=== PATIENT | male | born 2000 | race Caucasian/White ===

== ENCOUNTER 2023-01-30 08:27 | Observation (INO) ==
--- NOTE | 2022-12-24 09:36 | Anesthesiology Consultation ---
Date of Service December 24, 2022 Assessment & Plan (1) Encounter for pre-operative examination: Plan - COVID screening: Per credit assessment analyst on 12/24/2022: Travel screen-returned from [place] by place 12/21/22, no known COVID-19 positive contacts or current COVID- 19 related symptoms in past 2 weeks. To surgeon's discretion if preop COVID testing is needed. Chart Review Chart Review: Acceptable Risk for Surgery and Patient NOT seen in Pre Admission Testing History Surgery Operation Date: 12/26/22 07:00 Proposed Procedures p Septoplasty - Ivan Esquivel MD s and Bilateral Inferior Turbinate Reduction with Tonsillectomy and Possible Adenoidectomy - Ivan Esquivel MD Height/Weight Height: 5 ft 6 in Weight: 65.771 kg Allergies Allergy/AdvReac Type Severity Reaction Status Date / Time No Known Drug Allergies Allergy Verified 12/24/22 09:08 Medications Home Medications Medication Instructions Recorded Confirmed Last Taken tretinoin 0.025 % topical cream 1 applic topical HS 12/24/22 12/24/22 Unknown Past Medical History Medical History (Updated 12/24/22 @ 09:35 by Roxy Lowery PA-C) Sleep apnea "upcoming sx to help with sleep apnea, no device currently" Swimmer's ear of left side "currently using ear drops for this" Past Family History Family History Grandmother (Maternal) Breast cancer Other No family history of adverse response to anesthesia No family history of bleeding disorder Past Surgical History Surgical History (Updated 12/24/22 @ 09:12 by Clemencia Grover) Hx of wisdom tooth extraction Social History Smoking Status: Current every day smoker tobacco type: e-cigarettes Smoking cigarettes per day: vapes daily; occasional nicotine pouch Do You Dip or Chew Tobacco: No Hx Alcohol Use: No Alcohol type: beer, wine and hard liquor alcohol intake frequency: a few times a week Hx Substance Use: Yes substance use type: marijuana Last Used Substance Other:: 1 month ago
[~2023-01-30 08:27] MED LIST: ACETAMINOPHEN 1000 MG/100 ML IV IV ONE; LACTATED RINGER'S 1,000 ML IV SCH; LR 15ML/HR IV SCH; ceFAZolin 2000MG 2,000 MG/15 ML SYR IV SCH
[2023-01-30] MEDS ORDERED: LIDOCAINE 2% MPF LOCAL 5 ML VIAL ONE (08:49)
[2023-01-30] MEDS ORDERED: DEXAMETHASONE SOD INJ 4 MG/ML VIAL ONE (08:49)
[2023-01-30] MEDS ORDERED: fentaNYL citrate PF 100 MCG/2 ML VIAL ONE ×2 (08:49→11:08)
[2023-01-30] MEDS ORDERED: MIDAZOLAM HCL 1 MG/ML 2ML VIAL ONE (08:49)
[2023-01-30] MEDS ORDERED: PROPOFOL IV EMULSION 10 MG/ML 20 ML VIAL IV ONE (08:49)
[2023-01-30] MEDS ORDERED: ONDANSETRON INJ 2 MG/ML 2 ML VIAL ONE ×2 (08:49→12:42)
[2023-01-30] MEDS ORDERED: ROCURONIUM BROMIDE 10 MG/ML 5 ML VIAL IV ONE (08:49)
[2023-01-30] MEDS ORDERED: ePHEDrine sulfate 50 MG/ML AMP IV PRN (09:07)
[2023-01-30] MEDS ORDERED: ONDANSETRON INJ 2 MG/ML 2 ML VIAL IV PRN ×2 (09:07→12:44)
[2023-01-30] MEDS ORDERED: fentaNYL citrate PF 100 MCG/2 ML VIAL IV PRN (09:07)
[2023-01-30] MEDS ORDERED: ATROPINE SULFATE 0.1 MG/ML 10ML SYR IV PRN (09:07)
[2023-01-30] MEDS ORDERED: LIDOCAINE 2% JELLY 5 ML TUBE EXT ONE (10:22)
[2023-01-30] MEDS ORDERED: MUPIROCIN 2% OINT 22 GM TUBE ONE (10:22)
[2023-01-30] MEDS ORDERED: LIDOCAINE/EPINEPHRINE 1% 20 ML VIAL ONE (10:23)
[2023-01-30] MEDS ORDERED: TRIAMCINOLONE ACET 40 MG/ML VIAL ONE (10:23)
--- NOTE | 2023-01-30 10:25 | History & Physical Report ---
Date of Service January 30, 2023 Assessment & Plan (1) Tonsillar hypertrophy: (2) Nasal septal deviation: (3) Hypertrophy of both inferior nasal turbinates: (4) Obstructive sleep apnea: (5) Adenoid hypertrophy: Plan 22yM with severe CESAR presenting for septoplasty with bilateral inferior turbinate reduction and tonsillectomy with possible adenoidectomy. Proceed as planned. History of Present Illness Primary Care Provider: [facility] 22yM with severe CESAR presenting for septoplasty with bilateral inferior turbinate reduction and tonsillectomy with possible adenoidectomy. No changes. Allergies Allergy/AdvReac Type Severity Reaction Status Date / Time No Known Drug Allergies Allergy Verified 01/30/23 08:49 Home Medications Medication Instructions Recorded Confirmed Type tretinoin 0.025 % topical cream 1 applic topical HS 12/24/22 01/30/23 History Past Med/Surg History Medical History Sleep apnea "upcoming sx to help with sleep apnea, no device currently" Swimmer's ear of left side "currently using ear drops for this" Surgical History Hx of wisdom tooth extraction Family History Grandmother (Maternal) Breast cancer Other No family history of adverse response to anesthesia No family history of bleeding disorder Social History Smoking Status: Current every day smoker Tobacco Type: E-cigarettes / Vaping Age Started Using Tobacco: 16; Cigarettes Per Day: vapes daily; occasional nicotine pouch; Second Hand Exposure: No; Do You Dip or Chew Tobacco: No; Tobacco Cessation Education Requested by Patient: No Hx Alcohol Use: No Hx Substance Use: Yes Non-Prescribed Medications: Marijuana Non-Prescribed Medications Comment: through vape pen Last Used Substance Other:: 1 month ago Preferred Language: [place] Communication Ability: Effective Control And Recovery Combat Rescue Required: No Beliefs That Will Affect Care: None marital status: Single Current Living Situation: Other Current Living Situation Comment: 3 roommates current occupational status: student Other Information That Helps Us Care for You: No Feels Safe at Home: Yes Safety Concerns: Feels Safe At This Time Assistive Devices: None Physical Exam Physical Exam: WNWD, NAD EOMI, normal sclera Nares patent, no external deformity External ears normal Normal voice Nonlabored respirations, no stridor AAO x3 Moving all extremities spontaneously Results & Data Results & Data Vital Signs (Past 12 Hours) Vital Signs Temp Pulse Resp BP Pulse Ox O2 Del Method 01/30/23 08:50 36.4 C L 80 18 155/90 H 99 Room Air PG Care Time/CCT Total # of Minutes Spent Total Time Spent with Patient: Total time spent is greater than 50% in coordination of care (as documented) at patient's floor/unit and/or counseling patient: Coding Level of Care Code None Diagnoses Tonsillar hypertrophy J35.1 Nasal septal deviation J34.2 Hypertrophy of both inferior nasal turbinates J34.3 Obstructive sleep apnea G47.33 Adenoid hypertrophy J35.2
[2023-01-30] MEDS: OXYMETAZOLINE 0.05% 30 ML BTL NAE SCH ×2 (10:40→11:49)
[2023-01-30] MEDS ORDERED: KETAMINE 50 MG/5 ML SYRINGE ONE (10:56)
[2023-01-30] MEDS ORDERED: SURGICEL ABSORB HEMOSTAT 2IN X 14IN TOP ONE (12:08)
[2023-01-30] MEDS ORDERED: oxyCODONE HCL SOLN 5 MG/5 ML UDC PO PRN (12:42)
--- NOTE | 2023-01-30 12:42 | Post Operative Brief Note ---
PG Immediate Post Op with CF Date of Surgery January 30, 2023 Pre & Post Diagnosis Operation Date: 01/30/23 10:20 Pre-Op Diagnosis: (1) Tonsillar hypertrophy (2) Nasal septal deviation (3) Hypertrophy of both inferior nasal turbinates (4) Obstructive sleep apnea (5) Adenoid hypertrophy Post-Op Diagnosis: (1) Tonsillar hypertrophy (2) Nasal septal deviation (3) Hypertrophy of both inferior nasal turbinates (4) Obstructive sleep apnea (5) Adenoid hypertrophy I identified the patient and participated in the time-out.: Yes Procedure Operation Date: 01/30/23 10:20 Actual Procedures p Septoplasty and Bilateral Inferior Turbinate Reduction(Bilateral) - Ivan Esquivel MD s Bilateral Tonsillectomy and Adenoidectomy(Bilateral) - Ivan Esquivel MD Surgeon Ivan Esquivel MD [employer] [facility] none Estimated Blood Loss 25 Findings See Below 1. 3+ tonsils 2. 70% obstructive adenoids 3. Intact palate 4. Septal deviation L with spur 5. Bilateral ITH Specimens Specimen Description: Permanent Specimen A: Right Tonsil B: Left Tonsil
[2023-01-30] MEDS ORDERED: SODIUM CHLORIDE 0.9% 1000ML 1,000 ML IV SCH (12:45)
[2023-01-30] MEDS ORDERED: SUGAMMADEX SODIUM 200 MG/2 ML VIAL IV ONE ×2 (13:07→13:08)
[2023-01-30] MEDS: LABETALOL HCL IV 5 MG/ML 20ML IV PRN ×3 (14:43→15:22)
--- NOTE | 2023-01-30 15:26 | Anesthesiology Progress Note ---
Date of Service January 30, 2023 Anesthesia Post Procedure Vital Signs Vital Signs: Temp Pulse Pulse Resp BP Pulse Ox O2 Del Method 01/30/23 15:20 76 14 156/102 H 95 Room Air 01/30/23 15:10 61 14 153/101 H 95 Room Air 01/30/23 15:00 64 12 143/91 H 99 Room Air 01/30/23 14:50 36.5 C 58 L 14 140/94 100 Room Air 01/30/23 14:40 63 14 158/100 H 100 Room Air 01/30/23 14:30 66 12 159/107 H 99 Room Air 01/30/23 14:20 64 15 154/107 H 99 Room Air 01/30/23 14:10 62 12 178/102 H 98 Room Air 01/30/23 14:00 63 14 158/105 H 98 Room Air 01/30/23 13:53 36.1 C L 58 L 12 169/75 H 100 Oxymask 01/30/23 08:50 36.4 C L 80 18 155/90 H 99 Room Air O2 Flow Rate 01/30/23 15:20 01/30/23 15:10 01/30/23 15:00 01/30/23 14:50 01/30/23 14:40 01/30/23 14:30 01/30/23 14:20 01/30/23 14:10 01/30/23 14:00 01/30/23 13:53 6 01/30/23 08:50 Pain Intensity Throat: Pain Intensity: 6 Transfer of Care Handoff Completed per policy Notes Mental Status: alert / awake / arousable Patient Amnestic to Procedure: Yes Nausea / Vomiting: adequately controlled Pain: adequately controlled Airway Patency, RR, SpO2: stable & adequate BP & HR: stable & adequate Hydration State: stable & adequate Anesthetic Complications: no major complications apparent
--- NOTE | 2023-01-30 17:32 | Operative Report (OR) ---
DATE OF SERVICE: 01/30/2023. PREOPERATIVE DIAGNOSES: 1. Tonsillar hypertrophy. 2. Adenoid hypertrophy. 3. Nasal septal deviation. 4. Bilateral inferior turbinate hypertrophy. 5. Severe obstructive sleep apnea. POSTOPERATIVE DIAGNOSES: 1. Tonsillar hypertrophy. 2. Adenoid hypertrophy. 3. Nasal septal deviation. 4. Bilateral inferior turbinate hypertrophy. 5. Severe obstructive sleep apnea. PROCEDURES: 1. Septoplasty. 2. Bilateral submucosal inferior turbinate reduction. 3. Adenotonsillectomy. SURGEON: Ivan Esquivel MD. ANESTHESIA: General, orotracheal. ESTIMATED BLOOD LOSS: 40 mL INTRAOPERATIVE FINDINGS: 1. 3+ cryptic tonsils bilaterally. 2. 70% obstructive adenoid tissue. 3. Intact palate. 4. Septal deviation to the left with large spur. 5. Bilateral inferior turbinate hypertrophy. SPECIMENS: 1. Right tonsil. 2. Left tonsil. COMPLICATIONS: Oropharyngeal oozing on emergence requiring additional cauterization. INDICATIONS FOR THE PROCEDURE: The patient is a 22-year-old male with a history of a left greater th an right nasal airway obstruction, recurrent tonsillitis, tonsillar hypertrophy, and severe obstructi ve sleep apnea, who was noted to have a septal deviation and inferior turbinate hypertrophy in the of fice as well as adenotonsillar hypertrophy. A sleep study showed severe obstructive sleep apnea with an AHI of 37. It was recommended that he undergo adenotonsillectomy with a septoplasty with bilater al inferior turbinate reduction after failing maximal medical therapy. The risks and benefits of the procedure were discussed in detail, and the patient elected to proceed with surgery. Informed conse nt was obtained. DESCRIPTION OF PROCEDURE: The patient was identified in the preoperative holding area and brought ba to the operating room. He was placed supine on the operating room table. After the successful in duction of general orotracheal anesthesia by the Anesthesia team, the head of the bed was turned 90 d egrees and a shoulder roll was placed. The patient was prepped and draped in the usual fashion for a denotonsillectomy with septoplasty and bilateral inferior turbinate reduction. A surgical timeout wa s performed. The patient's neck was gently extended and a McIvor mouth gag was inserted into the ora l cavity and used to expose the oropharynx. It was suspended from a Klein stand. The oropharynx was examined and the tonsils were noted to be 3+ and cryptic bilaterally. The palate was palpated and no franki to be intact. The FiO2 was confirmed to be below 30%. The right tonsil was grasped with a curve d Allis clamp and retracted medially. It was carefully dissected free from the tonsillar fossa, taki ng care to preserve the anterior and posterior pillars. It was passed off the table for permanent pa thology. Prophylactic cauterization of the superior and inferior pole was performed. Attention was then turned to the left tonsil, which was removed in similar fashion. A small pumping vessel was noted in the left inferior pole, which was controlled with cautery. Adequate hemostasis w as noted. One red rubber catheter was placed in the right nasal cavity and used to retract the palat e. The nasopharynx was examined using a headlight and mirror. The adenoid tissue was noted to be 70 % obstructive of the nasopharynx. This was reduced using suction cautery, taking care to avoid injur y to the torus tubarius bilaterally and the choana. A generous cuff of soft tissue was left inferior ly for velopharyngeal closure. Adequate hemostasis was noted. An anterior rhinoscopy was then perfo rmed and the patient was noted to have a left septal deviation with a large left septal spur contacti ng the inferior turbinate. He was also noted to have inferior turbinate hypertrophy. The nasal sept um was injected with 1% lidocaine with 1:100,000 epinephrine in a submucoperichondrial and submucoper iosteal plane bilaterally. The bilateral nasal cavities were decongested using Afrin-soaked pledgets . A left hemitransfixion incision was carried out along the nasal septum in the submucoperichondrial pl ane. A left nasal septal flap was elevated using Dunia elevator along the septum in a submucoperich ondrial plane. The bony cartilaginous junction was identified. Posteriorly, the septal flap was the n elevated in a submucoperiosteal plane. A large spur was noted and the left septal flap was careful ly elevated over the spur with a small linear tear over the point of the spur. Attention was then tu rned to the right nasal septal flap, which was elevated in similar fashion. No mucosal tears were no franki. The bony cartilaginous junction was then transected using a Dunia elevator, taking care to preserve a 1.8 cm dorsal strut. Deflected quadrangular cartilage was then back cut using a 15-blade scalpel a nd removed from the patient. The septal flaps above and below the spur were then carefully elevated on both sides. A septal scissor was used to make a superior cut above the septal spur. The spur was then outfractured using a Dorado elevator and removed using a Veronica rongeur and Sidney forceps. Anterior rhinoscopy then revealed relief of the septal deviation and removal of the spur i n entirety. Space between the septal flaps was then irrigated with copious saline and suctioned shantal r. Adequate hemostasis was noted. A 0.9 x 0.9 cm2 of quadrangular cartilage was then trimmed and re placed between the septal flaps. The flaps were then quilted together using a running 3-0 chromic lemos ture. The hemitransfixion incision was then closed using a interrupted 5-0 fast gut sutures. The he ads of the bilateral inferior turbinates were then injected with 1% lidocaine with 1:100,000 epinephr ine. Stab incisions were made in the heads of the inferior turbinates bilaterally. A submucosal dissection was carried out along the inferior turbinate, bilateral bone bilaterally usin g a Dunia elevator. Powered instrumentation using the inferior turbinate blade was then used to red uce the submucosal stroma of the bilateral inferior turbinates. They were then outfractured using a Boies elevator. The bilateral nasal cavities were irrigated with copious saline and suctioned clear. The oropharynx was also irrigated and suctioned clear. Adequate hemostasis was noted. Bergeron splin ts were placed in the nasal cavities bilaterally and secured to the septum using 3-0 Prolene suture. Surgicel was tucked superior lateral to the Bergeron splints over the heads of the inferior turbinate b ilaterally for added hemostasis. An orogastric tube was used to decompress the stomach and removed f rom the patient. The patient was then turned over to the anesthesia team. On emergence, prior to ex tubation, the patient was noted to have some bleeding from the oropharynx. He was then deepened and a McIvor mouth gag was reinserted into the oral cavity. No significant pumping vessels were noted, h owever, oozing was noted from the right inferior pole. This was cauterized and controlled. There wa s a small amount of oozing from the left inferior pole as well, which was again controlled with sucti on cautery. The oral cavity was irrigated with copious saline and again an orogastric tube was used to decompress the stomach and removed from the patient. Adequate hemostasis was noted. The McIvor m outh gag was then taken out of suspension and removed from the patient's oral cavity. No lip or dent al injuries were noted. The patient was then turned over to the anesthesia team and extubated withou t difficulty. He was transferred to the PACU in good condition. I was present and performed the ent neil procedure myself. Job ID: [id number]
[2023-01-30] MEDS: ACETAMINOPHEN SUSP 325 MG/10.15 ML UDC PO SCH ×2 (18:29→23:47)
[2023-01-30] MEDS: OXYMETAZOLINE 0.05% 30 ML BTL SCH ×2 (18:33→21:30)
[2023-01-30] MEDS: oxyCODONE HCL SOLN 5 MG/5 ML UDC PO PRN (21:29)
[2023-01-30] MEDS: MUPIROCIN 2% OINT 22 GM TUBE EXT SCH (21:30)
[2023-01-31] MEDS: oxyCODONE HCL SOLN 5 MG/5 ML UDC PO PRN (04:48)
[2023-01-31] MEDS: ACETAMINOPHEN SUSP 325 MG/10.15 ML UDC PO SCH (05:45)
--- NOTE | 2023-01-31 08:15 | Discharge Summary (DS) ---
DATE OF ADMISSION: 01/30/2023. DATE OF DISCHARGE: 01/31/2023. ADMITTING PHYSICIAN: Ivan Esquivel MD. ADMITTING DIAGNOSES: 1. Severe obstructive sleep apnea. 2. Adenotonsillar hypertrophy. 3. Nasal septal deviation. 4. Bilateral inferior turbinate hypertrophy. DISCHARGE DIAGNOSES: 1. Severe obstructive sleep apnea. 2. Adenotonsillar hypertrophy. 3. Nasal septal deviation. 4. Bilateral inferior turbinate hypertrophy. PROCEDURES: 1. Adenotonsillectomy. 2. Septoplasty. 3. Bilateral submucosal inferior turbinate reduction. HOSPITAL COURSE: The patient is a 22-year-old male with a history of severe obstructive sleep apnea, who was admitted postoperatively after a septoplasty and bilateral inferior turbinate reduction as w ell as adenotonsillectomy on 01/30/2023. He had no complications during his hospital course. His pa in was controlled with oral medications. He was tolerating adequate p.o. intake. He had no orophary ngeal bleeding. His oxygen levels remained above 94%. He was examined on the day of discharge and n oted to be stable for discharge home on postop day #1. He was ambulating and voiding spontaneously. PHYSICAL EXAMINATION: The patient is well nourished and well developed, in no acute distress. He is alert and oriented x3. He has a nasal dressing in place with minimal drainage. Oropharynx is clear with healing eschars bilaterally, no evidence of clot or bleeding. Respirations are nonlabored with no stridor. MEDICATIONS: The patient is to resume all home medications as well as oxycodone 5 mg every 4 hours a s needed for pain. DIET: Soft diet x2 weeks. RESTRICTIONS: No heavy lifting or strenuous activity for 2 weeks. DISPOSITION: Home. FOLLOWUP: The patient is to follow up in 5-7 days postoperatively for splint removal. PENDING STUDIES: None. Job ID: [id number]
[2023-01-31] MEDS: OXYMETAZOLINE 0.05% 30 ML BTL SCH (10:13)
[2023-01-31] MEDS: MUPIROCIN 2% OINT 22 GM TUBE EXT SCH (10:13)
== END 2023-01-31 11:35 | disposition home or self-care (01) ==
LOC: ASU 08:27 → INTOOBSV 12:43 → EDINP 12:43 → 3N 17:52